=== PATIENT | female | born 1985 | race Caucasian/White ===

== ENCOUNTER 2025-02-23 14:37 | Observation (INO) | payer BC ==
[2025-02-23] MEDS: Ondansetron 4 MG/2 ML SDV IVPUSH ONE (15:14)
[2025-02-23 15:19] LABS: APPEARANCE,URINE SLIGHTLY CLOUDY (CLEAR); GLUCOSE,URINE NEGATIVE (NEGATIVE); OCCULT BLOOD,URINE TRACE-INTACT (NEGATIVE)
[2025-02-23 15:22] LABS: BASOPHILS ABSOLUTE AUTO 0.04 K/uL (0.00-0.10); BASOPHILS PERCENT AUTO 0.3 % (0.1-1.3); EOSINOPHILS PERCENT AUTO 0.0 % (0.0-5.4); IMMATURE GRAN ABSOLUTE AUTO 0.03 K/uL (0.00-0.23); IMMATURE GRAN PERCENT AUTO 0.3 % (0.0-0.7); LYMPHOCYTES ABSOLUTE AUTO 0.51 K/uL (0.8-3.3); LYMPHOCYTES PERCENT AUTO 4.5 % (11.4-47.7); MONOCYTES ABSOLUTE AUTO 0.37 K/uL (0.20-0.90); MONOCYTES PERCENT AUTO 3.2 % (3.3-12.6); NEUTROPHILS ABSOLUTE AUTO 10.51 K/uL (1.0-7.6); NEUTROPHILS PERCENT AUTO 91.7 % (40.0-78.1); PLATELET COUNT,PLT 289 K/uL (130-375); RED BLOOD CELL COUNT 4.65 M/uL (3.77-5.24); WHITE BLOOD CELL COUNT,WBC 11.5 K/uL (3.2-11.0)
[2025-02-23 15:23] LABS: EOSINOPHILS ABSOLUTE AUTO 0.00 K/uL (0.00-0.40)
[2025-02-23 15:28] LABS: AMPHETAMINES SCREEN, URINE NEGATIVE (NEGATIVE); METHADONE SCREEN, URINE NEGATIVE (NEGATIVE); METHAMPHETAMINES SCREEN, URINE NEGATIVE (NEGATIVE); OXYCODONE SCREEN,URINE NEGATIVE (NEGATIVE); PROPOXYPHENE SCREEN,URINE NEGATIVE (NEGATIVE); THC SCREEN,URINE 50 NG/ML NEGATIVE (NEGATIVE)
[2025-02-23 15:44] LABS: A/G RATIO 1.3 (1.2-2.2); ALANINE AMINOTRANSFERASE,ALT 22 U/L (12-78); ASPARTATE AMNIOTRANSFERASE,AST 21 U/L (15-37); BILIRUBIN TOTAL 0.7 mg/dL (0.2-1.0); BLOOD UREA NITROGEN,BUN 16 mg/dL (7-18); CARBON DIOXIDE,CO2 24 mmol/L (21-32); CHLORIDE,CL 98 mmol/L (100-108); CREATININE 1.0 mg/dL (0.6-1.0); EST CRCL DRUG DOSING (CG) 72.00 mL/min; ESTIMATED GFR 73 mL/min (>60); GLUCOSE RANDOM 132 mg/dL (74-106); POTASSIUM,K 4.3 mmol/L (3.6-5.2); PROTEIN TOTAL,TP 7.2 g/dL (6.4-8.2); SODIUM,NA 134 mmol/L (140-148)
[2025-02-23 15:50] LABS: SQUAMOUS EPITHELIAL CELLS,UR MANY /HPF; UROTHELIAL CELLS,URINE NOT SEEN /HPF
[2025-02-23] MEDS: Iopamidol 612 MG/ML 100 ML Bottle IV SCH (16:26)
[2025-02-23] MEDS ORDERED: fentaNYL 100 MCG/2 ML SDV IVPUSH PRN ×2 (19:10)
[2025-02-23] MEDS ORDERED: Scopalamine 1mg/3day Transdermal Patch TRDERM PRN (19:10)
[2025-02-23] MEDS ORDERED: diphenhydrAMINE 50 MG/ML SDV IVPUSH PRN (19:10)
[2025-02-23] MEDS: Ondansetron 4 MG/2 ML SDV IVPUSH PRN (21:22)
[2025-02-23] MEDS: fentaNYL 100 MCG/2 ML SDV IVPUSH PRN (21:44)
[2025-02-24 06:02] LABS: BASOPHILS ABSOLUTE AUTO 0.04 K/uL (0.00-0.10); BASOPHILS PERCENT AUTO 0.5 % (0.1-1.3); EOSINOPHILS ABSOLUTE AUTO 0.04 K/uL (0.00-0.40); EOSINOPHILS PERCENT AUTO 0.5 % (0.0-5.4); IMMATURE GRAN ABSOLUTE AUTO 0.03 K/uL (0.00-0.23); IMMATURE GRAN PERCENT AUTO 0.3 % (0.0-0.7); LYMPHOCYTES ABSOLUTE AUTO 0.86 K/uL (0.8-3.3); LYMPHOCYTES PERCENT AUTO 9.9 % (11.4-47.7); MONOCYTES ABSOLUTE AUTO 0.70 K/uL (0.20-0.90); MONOCYTES PERCENT AUTO 8.0 % (3.3-12.6); NEUTROPHILS ABSOLUTE AUTO 7.06 K/uL (1.0-7.6); NEUTROPHILS PERCENT AUTO 80.8 % (40.0-78.1); PLATELET COUNT,PLT 232 K/uL (130-375); RED BLOOD CELL COUNT 4.13 M/uL (3.77-5.24); WHITE BLOOD CELL COUNT,WBC 8.7 K/uL (3.2-11.0)
[2025-02-24 06:20] LABS: BLOOD UREA NITROGEN,BUN 10.0 mg/dL (7-18); CARBON DIOXIDE,CO2 27.0 mmol/L (21-32); CHLORIDE,CL 103.0 mmol/L (100-108); CREATININE 1.0 mg/dL (0.6-1.0); EST CRCL DRUG DOSING (CG) 72.0 mL/min; ESTIMATED GFR 73.0 mL/min (>60); GLUCOSE RANDOM 102.0 mg/dL (74-106); POTASSIUM,K 4.2 mmol/L (3.6-5.2); SODIUM,NA 140.0 mmol/L (140-148)
[2025-02-24] MEDS ORDERED: Succinylcholine 200 MG/10 ML MDV ONE (08:35)
[2025-02-24] MEDS ORDERED: Dexamethasone 4 MG/ML SDV ONE (08:35)
[2025-02-24] MEDS ORDERED: Ondansetron 4 MG/2 ML SDV ONE (08:35)
[2025-02-24] MEDS ORDERED: Propofol 200 MG/20 ML SDV ONE (08:35)
[2025-02-24] MEDS ORDERED: Glycopyrrolate 0.2 MG/ML 5 ML MDV ONE (08:35)
[2025-02-24] MEDS ORDERED: fentaNYL 250 MCG/5 ML SDV ONE (08:35)
[2025-02-24] MEDS ORDERED: Ketorolac 30 MG/ML SDV ONE (09:32)
[2025-02-24] MEDS: Acetaminophen/HYDROcodone 325-5 MG Tab PO PRN (11:30)
[2025-02-24] MEDS: Piperacillin/Tazobactam/Dext 4.5 GM in Premix Bag 1 BAG IV SCH (14:10)
== END 2025-02-24 15:09 | disposition home or self-care (01) ==
LOC: JP.ED 14:37 → JP.MS 19:00
PROVIDERS: ADMIT Surgery; ATTEND Surgery
DX: K35.80 Unspecified acute appendicitis (principal)
CPT/HCPCS: 36415; 44970; 74177; 80048; 80053; 80305; 81001; 81025; 85025; 86140; 87040; 87070; 87075; 87205; 96365; 96366; 96375; 96376; 99285; A9270; G0378; J0169; J0330; J0665; J1100; J1885; J2270; J2405; J2543; J2704; J2795; J3010; J7030; Q9967; 00840-QZ; 96374; 99284; J1171; J1596; J2710; J3490